=== PATIENT | male | born 2000 | race Caucasian/White ===

== ENCOUNTER → 2024-12-09 08:53 | Outpatient (CLI) | payer OTHER, SELFPAY ==
--- NOTE | 2024-12-09 08:59 | DI.RAD.S_ITS ---
PROCEDURE: XR CHEST 2V INDICATIONS: XRAY TECHNIQUE: 2 views of the chest were acquired. COMPARISON: None. FINDINGS: Heart, mediastinum and pulmonary vascular: Heart is normal in size and configuration. Mediastinum is unremarkable. Pulmonary vascular is normal. Lungs: Clear Pleural spaces: Normal-no effusions or pneumothorax. Bones and soft tissues: Normal IMPRESSION: Normal chest. Dictated by: Luis Miguel Booker M.D. on 12/10/2024 at 11:47 Approved by: Luis Miguel Booker M.D. on 12/10/2024 at 11:47
[2024-12-09 09:53] LABS: Appearance Urine UA CLEAR; Bilirubin Urine UA NEGATIVE (NEGATIVE); Color Urine UA YELLOW; Glucose Urine UA NEGATIVE (Negative); Ketones Urine UA NEGATIVE (NEGATIVE); Leukocyte Esterase Urine UA NEGATIVE (NEGATIVE); Nitrite Urine UA NEGATIVE (Negative); Occult Blood Urine UA TRACE-INTACT (Negative); Protein Urine UA TRACE (Negative); Specific Gravity Urine UA 1.025 (1.000-1.035); Urobilinogen Urine UA 1.0 E.U./dL (0.2); pH Urine UA 6.0 (4.5-8.0)
[2024-12-09 10:02] LABS: Culture Indicated Urine Cult Not Indicated
[2024-12-09 10:31] LABS: Alanine Aminotransferase 54 IU/L (<50); Albumin 4.6 g/dL (3.5-5.0); Albumin Globulin Ratio 1.6 (1.0-2.8); Alkaline Phosphatase 69 U/L (38-126); Blood Urea Nitrogen 14 mg/dL (9-20); Calcium 9.7 mg/dL (8.4-10.2); Carbon Dioxide 26 mmol/L (22-32); Chloride 104 mmol/L (98-107); Estimated Glomerular Filt Rate > 60 mL/min (>60); Globulin 2.9 g/dL (1.7-4.1); Glucose 94 mg/dL (70-99); HEMOLYSIS 23 (0-50); Potassium 4.2 mmol/L (3.4-5.1); Sodium 141 mmol/L (137-145); Total Protein 7.5 g/dL (6.3-8.2)
== END ==
PROVIDERS: Referring Provider Chiropractor; Visit Provider Chiropractor
DX: R07.9 Chest pain, unspecified (principal); N18.9 Chronic kidney disease, unspecified
CPT/HCPCS: 36415; 71046; 80053; 81001